=== PATIENT | female | born 1945 | race Caucasian/White ===

== ENCOUNTER → 2018-03-22 10:38 | Outpatient (CLI) | payer MEDICARE, SELFPAY ==
--- NOTE | 2018-03-22 | DI.MG.S_ITS ---
BILATERAL DIGITAL SCREENING MAMMOGRAM 3D/2D WITH CAD: 03/22/2018 CLINICAL: Routine screening. Comparison is made to exams dated: 03/23/2017 mammogram, 01/21/2016 mammogram, and 08/07/2011 mammogram - [facility]. The tissue of both breasts is predominantly fatty. Current study was also evaluated with a Computer Aided Detection (CAD) system. No significant masses, calcifications, or other findings are seen in either breast. There has been no significant interval change. IMPRESSION: NEGATIVE There is no mammographic evidence of malignancy. A 1 year screening mammogram is recommended. NOTE: For mammograms, a report in lay terms will be sent to the patient. Approximately 15% of breast malignancies will not be visualized mammographically. In the management of a palpable breast mass, a negative mammogram must not discourage biopsy of a clinically suspicious lesion. Electronically Signed By: Aga lloyd/thiago:03/23/2018 12:31:15 letter sent: Normal Exam ACR BI-RADS Category 1: Negative [id number]
== END ==
PROVIDERS: PCP Physician Assistant; Visit Provider Physician Assistant
DX: Z12.31 Encounter for screening mammogram for malignant neoplasm of breast (principal)
CPT/HCPCS: 77063; 77067

== ENCOUNTER → 2018-11-21 09:35 | Outpatient (CLI) | payer MEDICARE, SELFPAY ==
--- NOTE | 2018-11-21 | DI.MG.S_ITS ---
BILATERAL DIGITAL DIAGNOSTIC MAMMOGRAM 3D/2D: 11/21/2018 CLINICAL: Bilateral breast pain. Comparison is made to exams dated: 03/22/2018 mammogram - [facility] and 03/23/2017 mammogram - [facility]. There are scattered fibroglandular elements in both breasts. No significant masses, calcifications, or other findings are seen in either breast. IMPRESSION: NEGATIVE There is no abnormality seen in either breast to correspond with the pain, however, clinical followup is recommended. There is no mammographic evidence of malignancy. Return to annual mammogram screening schedule is recommended. Findings and recommendations were conveyed to the patient at time of exam. This exam was interpreted at Station ID: [id number]. NOTE: For mammograms, a report in lay terms will be sent to the patient. Approximately 15% of breast malignancies will not be visualized mammographically. In the management of a palpable breast mass, a negative mammogram must not discourage biopsy of a clinically suspicious lesion. Electronically Signed By: Elsa serna/:11/21/2018 10:42:22 letter sent: Normal Exam ACR BI-RADS Category 1: Negative [id number]
== END ==
PROVIDERS: PCP Physician Assistant; Visit Provider Physician Assistant
DX: N64.4 Mastodynia (principal)
CPT/HCPCS: 77066; G0279

== ENCOUNTER 2019-04-27 11:58 | Emergency (ER) | payer MEDICARE, SELFPAY ==
[2019-04-27 11:58] VITALS: BP 130/67; PULSE 80; RESP 18; TEMP 36; O2SAT 96
--- NOTE | 2019-04-27 12:27 | DI.RAD.S_ITS ---
PROCEDURE: XR CHEST 1V INDICATIONS: chest pain TECHNIQUE: One view of the chest was acquired. COMPARISON: None. FINDINGS: Surgical changes and devices: None. Lungs and pleura: Lungs are clear. No pleural effusions or pneumothorax. Mediastinum: Mediastinal contours appear normal. Heart size is normal. Bones and chest wall: No suspicious bony lesions. Overlying soft tissues appear unremarkable. IMPRESSION: No acute cardiopulmonary process is evident. Dictated by: Johnny Nur M.D. on 04/27/2019 at 11:49 Approved by: Johnny Nur M.D. on 04/27/2019 at 12:06
[2019-04-27 12:35] LABS: Add Manual Diff / Slide Review NO; Basophils Absolute Auto 0 /uL (0-100); Basophils Percent Auto 0.7 % (0-2); Eosinophils Absolute Auto 300 /uL (0-450); Hematocrit 39.9 % (36-46); Hemoglobin 13.4 g/dL (12.0-16.0); Lymphocytes Absolute Auto 1800 /uL (1100-4500); Lymphocytes Percent Auto 27.1 % (25-40); Mean Corpuscular HGB Conc 33.6 % (30-36); Mean Corpuscular Hemoglobin 30.9 PG (26-34); Monocytes Absolute Auto 500 /uL (0-900); Neutrophils Absolute Auto 4100 /uL (1500-7000); Neutrophils Percent Auto 60.2 % (50-75); Platelet Count 278 X10^3/uL (150-400); Red Blood Cell Count 4.34 X10^6/uL (4.0-5.2); Red Cell Distribution Width 13.5 % (11.6-14.8); White Blood Cell Count 6.7 X10^3/uL (4.5-11.0)
[2019-04-27 12:36] LABS: PTT Partial Thromboplastin Tim 35 SECONDS (26.4-36.2)
[2019-04-27 12:37] LABS: Alanine Aminotransferase 41 IU/L (<35); Albumin 4.4 g/dL (3.5-5.0); Albumin Globulin Ratio 1.7 (1.0-2.8); Alkaline Phosphatase 77 U/L (38-126); Aspartate Aminotransferase 40 IU/L (14-36); BUN Creatinine Ratio 26.7 (6-22); Bilirubin Total 0.6 mg/dL (0.2-1.3); Blood Urea Nitrogen 16 mg/dL (7-17); Carbon Dioxide 28 mmol/L (22-32); Chloride 104 mmol/L (98-107); Creatine Kinase 116 U/L (30-135); Estimated Glomerular Filt Rate > 60.0 mL/min (>60); Globulin 2.6 g/dL (1.7-4.1); Glucose 125 mg/dL (80-110); HEMOLYSIS < 15 (0-50); Lipase 92 U/L (23-300); Potassium 3.8 mmol/L (3.4-5.1); Sodium 140 mmol/L (137-145)
[2019-04-27 12:40] VITALS: BP 130/66; PULSE 74; O2SAT 95
[2019-04-27 12:52] LABS: CKMB % Relative Index 1.9 % (1.5-5.0); Creatine Kinase MB 2.24 ng/mL (<2.37)
[2019-04-27 13:20] VITALS: BP 130/67; PULSE 70; O2SAT 97
--- NOTE | 2019-04-27 14:20 | ED_ITS ---
HPI - Chest Pain General Chief Complaint: Chest Pain Stated Complaint: chest pain last night Time Seen by Provider: 04/27/19 12:47 Source: patient Mode of arrival: Ambulatory Limitations: no limitations History of Present Illness HPI narrative: Patient comes emergency department complaining of palpitations this around 0100. She states she was just lying in bed when she began to feel as though her heart was ?shaking?. She states there was no pain with the sensation, but that it just felt very strange. She denies any shortness of breath. No nausea or vomiting. Patient states that she is not known to have any cardiac issues. She states that after her mother of congestive heart failure about 3 years ago she had a full workup with a reception at her own request, including stress test, event monitor, an echocardiogram, and the all of these were negative. She denies any history of smoking. She takes lisinopril and hydrochlorothiazide for hypertension, and her hypertension has been well controlled on these. Patient denies any recent illnesses. She has not been taking any stimulants or decongestants. She states she has been under lot of stress because her is currently being treated for recurrent malignant melanoma. She also states she only slept about 4 or 5 hours last night. P atient states she has been feeling tired for some weeks and that she feels as though she could taking out of now. No dyspnea on exertion though. Related Data Home Medications Medication Instructions Recorded Confirmed hydrochlorothiazide 12.5 mg PO DAILY 04/27/19 04/27/19 lisinopril 20 mg PO BID 04/27/19 04/27/19 zolpidem 5 mg PO BEDTIME 04/27/19 Allergies Allergy/AdvReac Type Severity Reaction Status Date / Time No Known Drug Allergies Allergy Verified 04/27/19 13:10 Review of Systems Constitutional Constitutional: Denies chills, Denies fatigue, Denies fever(s), Denies frequent falls, Denies lethargy and Denies weakness Eyes Eyes: Denies change in vision, Denies eye discharge, Denies irritation and Denies loss of vision ENT Ears, Nose, Mouth, and Throat: Denies change in voice, Denies dizziness, Denies neck pain, Denies sore throat and Denies throat swelling Cardiovascular Cardiovascular: Denies chest pain, Denies irregular heart rhythm, Denies lightheadedness, Reports palpitations, Denies dyspnea, Denies dyspnea on exertion and Denies orthopnea Respiratory Respiratory: Denies cough, Denies dyspnea, Denies dyspnea on exertion and Denies wheezing Gastrointestinal Gastrointestinal: Denies abdominal pain, Denies change in bowel habits, Denies diarrhea, Denies nausea and Denies vomiting Genitourinary Genitourinary: Denies hematuria, Denies flank pain, Denies urinary incontinence and Denies urinary urgency Musculoskeletal Musculoskeletal: Denies back pain, Denies muscle weakness, Denies neck pain, Denies numbness and Denies tingling Integumentary/Breasts Skin/Breast: Denies pruritus, Denies erythema, Denies rash and Denies wounds Neurologic Neurologic: Denies behavioral changes, Denies confusion, Denies dizziness, Denies frequent falls, Denies loss of vision, Denies numbness, Denies tingling and Denies weakness Psychiatric Psychiatric: Denies anxiety, Denies behavioral changes, Denies confusion, Denies depression, Denies homicidal ideation and Denies suicidal ideation Endocrine Endocrine: Denies fatigue, Denies flushing and Reports palpitations Hematologic/Lymphatic Hematologic/Lymphatic: Denies easy bruising Allergic/Immunologic Allergic/Immunologic: Denies urticaria, Denies throat swelling and Denies wheezing Patient History Medical History HTN (hypertension) (Acute) Social History Smoking Status: Never smoker Smoking Status: Never smoker alcohol intake frequency: 0-2 drinks per day Substance Use Type: does not use Exam Initial Vital Signs Initial Vital Signs: Vital Signs Temperature 96.8 F L 04/27/19 11:58 Pulse Rate 80 04/27/19 11:58 Respiratory Rate 18 04/27/19 11:58 Blood Pressure 130/67 04/27/19 11:58 Pulse Oximetry 96 04/27/19 11:58 Const General: cooperative and well developed Nutritional Appearance: well nourished Orientation: alert, awake, oriented x3 and not confused [facility] Head: normocephalic and atraumatic Ears: external ears normal Nose: external nose normal and No nasal discharge Face and sinus: face symmetric and No dry mucous membranes Mouth: oral mucosae normal and moist mucous membranes Teeth and gingiva: dentition normal Eyes General: appearance normal, both eyes and all related structures Eyelids: eyelids normal Conjunctivae: conjunctivae normal Sclera: sclerae normal Pupils: PERRL EOM: EOM intact bilaterally Neck Neck: normal visual inspection, trachea midline, No lymphadenopathy, No midline deformity and No JVD Lymphatic: No lymphedema Chest Chest: normal inspection of the chest Resp Effort & Inspection: normal respiratory effort, able to speak in complete sentences, no respiratory distress and no use of accessory muscles Auscultation: clear to auscultation bilaterally, no rales, no rhonchi and no wheezes Cardio Rate: regular rate Rhythm: regular rhythm Heart Sounds: no click, no gallops, no murmurs and no rubs Pulses: normal peripheral pulses GI Inspection: non-distended Palpation: soft, no hepatosplenomegaly, No guarding, No pulsatile mass and No tender Auscultation: normal bowel sounds Back/Spine/Pelvis Back: No CVA tenderness Cervical Spine: cervical ROM normal and No pain with cervical ROM Thoracic/Lumbar Spine: thoracic and lumbar spine normal to inspection Skin General: no rashes or lesions noted, No jaundice and No petechiae Neuro General: alert, oriented x3, gait normal and no focal motor deficits Speech: speech normal Extrem General: full ROM, no clubbing, cyanosis or edema, no pedal edema and no calf tenderness Psych Appearance: well kempt Mental Status: mental status grossly normal Attitude: cooperative Thought Content: normal and suicidality Judgment: judgment good Course Course Course Narrative: Patient was worked up with labs, chest x-ray, and EKG, all of which were unremarkable. Patient's troponin was slightly elevated an indeterminate, but given that had been over 10 hours since the patient's symptoms, I did not feel this slight elevation was likely to be significant. T he patient was asymptomatic in the emergency department and I felt she was stable for discharge home. We've discussed the need for follow-up to discuss event monitoring, should she have repeated episodes like this. However, it is possible that the patient has experienced a 1 time phenomenon which will not repeat itself, in which case is up to the patient whether she would like to follow up regarding this or not. If the patient develops chest pain shortness of breath, or if she should have another episode associated with syncope or near-syncope, she has been advised that she should return to the emergency department immediately. Orders Ordered: ED Orders 04/27/19 12:07 EKG-12 Lead Stat 04/27/19 12:20 Complete Blood Count AUTO DIFF Stat Comprehensive Metabolic Panel Stat Lipase Stat Partial Thromboplastin Time Stat Prothrombin Time INR Stat Troponin & CK Cardiac Panel Stat 04/27/19 12:27 XR chest 1V Stat Vital Signs Vital signs: Vital Signs - 8 hr 04/27/19 12:40 04/27/19 13:20 04/27/19 14:37 Pulse Rate 74 70 68 Respiratory Rate 18 Blood Pressure 111/74 Blood Pressure [Left Arm] 130/66 130/67 Pulse Oximetry 95 97 98 MDM - Chest Pain Medical Records Data Attestation: I reviewed the patient's medical records. Lab Data Attestation: I reviewed the patient's lab results. Result diagrams: 04/27/19 12:20 04/27/19 12:20 Labs: Lab Results 04/27/19 04/27/19 04/27/19 Range/Units 12:20 12:20 12:20 WBC 6.7 (4.5-11.0) X10^3/uL RBC 4.34 (4.0-5.2) X10^6/uL Hgb 13.4 (12.0-16.0) g/dL Hct 39.9 (36-46) % MCV 92.0 (80-100) fL MCH 30.9 (26-34) PG MCHC 33.6 (30-36) % RDW 13.5 (11.6-14.8) % Plt Count 278 (150-400) X10^3/uL Neut % (Auto) 60.2 (50-75) % Lymph % (Auto) 27.1 (25-40) % [place] % (Auto) 8.0 (3-14) % Eos % (Auto) 4.0 (2-4) % Baso % (Auto) 0.7 (0-2) % Neut # (Auto) 4100 (7417-1794) /uL Lymph # (Auto) 1800 (2734-5635) /uL [place] # (Auto) 500 (0-900) /uL Eos # (Auto) 300 (0-450) /uL Baso # (Auto) 0 (0-100) /uL PT 12.0 (10.1-12.7) SECONDS INR 1.0 (0.9-1.3) APTT 35 (26.4-36.2) SECONDS Sodium 140 (137-145) mmol/L Potassium 3.8 (3.4-5.1) mmol/L Chloride 104 (98-107) mmol/L Carbon Dioxide 28 (22-32) mmol/L BUN 16 (7-17) mg/dL Creatinine 0.60 (0.52-1.04) mg/dL Estimated GFR > 60.0 (>60) mL/min BUN/Creatinine Ratio 26.7 H (6-22) Glucose 125 H (80-110) mg/dL Calcium 10.0 (8.4-10.2) mg/dL Total Bilirubin 0.6 (0.2-1.3) mg/dL AST 40 H (14-36) IU/L ALT 41 H (<35) IU/L Alkaline Phosphatase 77 (38-126) U/L Total Creatine Kinase 116 (30-135) U/L CK-MB (CK-2) 2.24 (<2.37) ng/mL CK-MB (CK-2) Rel Index 1.9 (1.5-5.0) % Troponin I 0.050 H (0.01-0.034) ng/mL Total Protein 7.0 (6.3-8.2) g/dL Albumin 4.4 (3.5-5.0) g/dL Globulin 2.6 (1.7-4.1) g/dL Albumin/Globulin Ratio 1.7 (1.0-2.8) Lipase 92 (23-300) U/L Imaging Data Chest x-ray: Radiologist's impression: PROCEDURE: XR CHEST 1V INDICATIONS: chest pain TECHNIQUE: One view of the chest was acquired. COMPARISON: None. FINDINGS: Surgical changes and devices: None. Lungs and pleura: Lungs are clear. No pleural effusions or pneumothorax. Mediastinum: Mediastinal contours appear normal. Heart size is normal. Bones and chest wall: No suspicious bony lesions. Overlying soft tissues appear unremarkable. IMPRESSION: No acute cardiopulmonary process is evident. Dictated by: Johnny Nur M.D. on 04/27/2019 at 11:49 Approved by: Johnny Nur M.D. on 04/27/2019 at 12:06 ECG Data Attestation: I personally reviewed and interpreted this ECG as follows: (See below) Interpretation: Twelve lead EKG performed April 27, 2019 at 12:07 p.m., as follows: Regular ventricular rhythm with a rate of 75 beats per minute NH intervals 110 millisecond QTC interval [address] T wave changes Interpretation: Sinus rhythm with short NH interval; no signs of acute ischemia; borderline EKG as interpreted by ED MD. Discharge Plan Departure Patient Disposition: Home Clinical Impression: Heart palpitations Discharge Date/Time: 04/27/19 14:37 Instructions: DI for Palpitations Activity Restrictions/Additional Instructions: Your EKG looks good today, and your labs do not show any evidence of a heart attack or other concerning finding. It is not clear what caused your palpitations, although you have been noted on the air sampling and monitoring today to have occasional extra beats. It is important that you follow-up with your primary care physician if you have any further symptoms like this, and discuss getting set up with an event monitor to further evaluate the feeling of palpitations t hat you're having. If you develop chest pain, shortness of breath or nausea in the setting of your palpitations, please return to the emergency department immediately. Prescriptions: No Action lisinopril 20 mg tablet 20 mg PO BID RF: 0 zolpidem 5 mg tablet 5 mg PO BEDTIME RF: 0 hydrochlorothiazide 12.5 mg tablet 12.5 mg PO DAILY RF: 0 Referrals: Adamarsi Figueroa PA-C [Primary Care Provider] -
[2019-04-27 14:37] VITALS: BP 111/74; PULSE 68; RESP 18; O2SAT 98
== END 2019-04-27 14:37 | disposition home or self-care (01) ==
PROVIDERS: Emergency Provider Emergency Medicine; PCP Physician Assistant
DX: R00.2 Palpitations (principal)
CPT/HCPCS: 36415; 71045; 80053; 82550; 82553; 83690; 84484; 85025; 85610; 85730; 93005; 93010; 99284; 99285

== ENCOUNTER 2019-04-29 16:10 | Emergency (ER) | payer MEDICARE, SELFPAY ==
[2019-04-29 16:24] VITALS: BP 147/74; PULSE 88; RESP 16; TEMP 36.4; O2SAT 97; BMI 33.5
--- NOTE | 2019-04-29 16:24 | DI.RAD.S_ITS ---
PROCEDURE: XR CHEST 1V INDICATIONS: chest pain TECHNIQUE: One view of the chest was acquired. COMPARISON: [facility], CR, XR CHEST 1V, 04/27/2019, 12:32. FINDINGS: Surgical changes and devices: Cholecystectomy clips are seen. Lungs and pleura: An incomplete inspiratory result is noted, causing a crowded appearance to the lung markings. No focal infiltrates are seen. No pneumothorax or significant pleural effusions are seen. Mediastinum: Mediastinal contours appear normal. Heart size is normal. Bones and chest wall: No suspicious bony lesions. Age-appropriate bony degenerative changes are seen. Overlying soft tissues appear unremarkable. IMPRESSION: Portable chest within normal limits. Dictated by: Sulaiman Hahn M.D. on 04/29/2019 at 16:00 Approved by: Sulaiman Hahn M.D. on 04/29/2019 at 16:01
[2019-04-29 16:47] VITALS: BP 138/65; PULSE 80; RESP 19; O2SAT 97
--- NOTE | 2019-04-29 16:59 | ED.RECABL ---
HPI - Recheck/Abnormal Lab/Rx General Chief Complaint: Recheck/Abnormal Lab/Rx Stated Complaint: wants labs done, concerned about her heart Time Seen by Provider: 04/29/19 16:23 Source: patient and old records reviewed Mode of arrival: Ambulatory Limitations: no limitations History of Present Illness HPI narrative: 73-year-old female comes to the emergency with request for repeat heart enzymes. Patient was seen here on the for palpitations. Patient states on the night of the she was lying in bed on her back when she felt like her heart was sort of juggling or shaking for about 15 minutes lying Jell-O she states it resolved. She did have any more symptoms since then. The only thing she stated is maybe she felt like there was a brush like a finger brushing across her chest but more on the inside a couple times. She has not any syncope, no shortness of breath. No nausea, no vomiting no diaphoresis. She denies any chest pain or pressure. She states she has a past medical history of hypertension she recently had her lisinopril increased from 20 mg daily to twice daily. She also had her metformin stopped about 2 or 3 weeks ago because her hemoglobin A1c has been improving and they felt she likely did not needed anymore. She has a history of laser eye surgery that was on the day of the when she had symptoms early in the day. 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 Cholecystectomy remote left leg fracture with repair, appendectomy and tonsillectomy. No tobacco, quit drinking alcohol 30 years ago and denies illicit. She was in contact with her primary care PA Henry who asked that she get repeat labs as she had an indeterminate troponin on the and we have no priors for comparison. She has set up follow-up with Cardiology on the 05 of May. Related Data Home Medications Medication Instructions Recorded Confirmed hydrochlorothiazide 12.5 mg PO DAILY 04/27/19 04/27/19 lisinopril 20 mg PO BID 04/27/19 04/27/19 zolpidem 5 mg PO BEDTIME 04/27/19 Allergies Allergy/AdvReac Type Severity Reaction Status Date / Time No Known Drug Allergies Allergy Verified 04/27/19 13:10 Review of Systems Review of Systems ROS Unobtainable: All systems reviewed & are unremarkable except as noted in HPI and below Patient History Medical History HTN (hypertension) (Acute) Social History Smoking Status: Never smoker Smoking Status: Never smoker alcohol intake frequency: 0-2 drinks per day Substance Use Type: does not use Exam Narrative Exam Narrative: GENERAL: Alert and oriented x three, obese, well-appearing female in no acute distress. HEENT: Head normocephalic, atraumatic, EOMI, pupils reactive, face symmetric, moist mucous membranes NECK: Supple, full range of motion CARDIOVASCULAR: Regular rate and rhythm without murmurs, rubs or gallops. RESPIRATORY: Breath sounds equal bilaterally, no wheezes rales or rhonchi. ABDOMEN: Soft, nontender. Normoactive bowel sounds all 4 quadrants. No guarding or rebound, rigidity, no mass : No CVA tenderness EXTREMITIES: Normal range of motion, no clubbing or edema. Neurovascularly intact NEUROLOGICAL: Cranial nerves II through XII grossly intact. Moving all extremities SKIN: Warm, dry, no petechiae, no rashes or lesions. Initial Vital Signs Initial Vital Signs: Vital Signs Temperature 97.5 F L 04/29/19 16:24 Pulse Rate 88 04/29/19 16:24 Respiratory Rate 16 04/29/19 16:24 Blood Pressure 147/74 H 04/29/19 16:24 Pulse Oximetry 97 04/29/19 16:24 Course Orders Ordered: ED Orders 04/29/19 16:24 XR chest 1V Stat EKG-12 Lead Stat 04/29/19 17:06 Complete Blood Count AUTO DIFF Stat Comprehensive Metabolic Panel Stat Lipase Stat Magnesium Stat Partial Thromboplastin Time Stat Prothrombin Time INR Stat Troponin & CK Cardiac Panel Stat Vital Signs Vital signs: Vital Signs - 8 hr 04/29/19 16:24 04/29/19 16:47 04/29/19 18:00 Temperature 97.5 F L Pulse Rate 88 80 71 Respiratory Rate 16 19 20 Blood Pressure 147/74 H Blood Pressure [Right Arm] 138/65 143/90 H Pulse Oximetry 97 97 96 MDM - Recheck/Abnormal Lab/Rx Lab Data Attestation: I reviewed the patient's lab results. Result diagrams: 04/29/19 17:06 04/29/19 17:06 Labs: Lab Results 04/29/19 04/29/19 04/29/19 Range/Units 17:06 17:06 17:06 WBC 6.8 (4.5-11.0) X10^3/uL RBC 4.35 (4.0-5.2) X10^6/uL Hgb 13.4 (12.0-16.0) g/dL Hct 39.8 (36-46) % MCV 91.5 (80-100) fL MCH 30.7 (26-34) PG MCHC 33.6 (30-36) % RDW 13.3 (11.6-14.8) % Plt Count 278 (150-400) X10^3/uL Neut % (Auto) 58.4 (50-75) % Lymph % (Auto) 30.8 (25-40) % [place] % (Auto) 5.2 (3-14) % Eos % (Auto) 4.6 H (2-4) % Baso % (Auto) 1.0 (0-2) % Neut # (Auto) 4000 (4594-7109) /uL Lymph # (Auto) 2100 (1721-1965) /uL [place] # (Auto) 400 (0-900) /uL Eos # (Auto) 300 (0-450) /uL Baso # (Auto) 100 (0-100) /uL PT 11.8 (10.1-12.7) SECONDS INR 1.0 (0.9-1.3) APTT 32 D (26.4-36.2) SECONDS Sodium 140 (137-145) mmol/L Potassium 4.2 (3.4-5.1) mmol/L Chloride 102 (98-107) mmol/L Carbon Dioxide 27 (22-32) mmol/L BUN 12 (7-17) mg/dL Creatinine 0.50 L (0.52-1.04) mg/dL Estimated GFR > 60.0 (>60) mL/min BUN/Creatinine Ratio 24.0 H (6-22) Glucose 110 (80-110) mg/dL Calcium 9.8 (8.4-10.2) mg/dL Magnesium 1.9 (1.6-2.3) mg/dL Total Bilirubin 0.7 (0.2-1.3) mg/dL AST 52 H (14-36) IU/L ALT 51 H (<35) IU/L Alkaline Phosphatase 71 (38-126) U/L Total Creatine Kinase 104 (30-135) U/L CK-MB (CK-2) 1.20 (<2.37) ng/mL CK-MB (CK-2) Rel Index 1.2 L (1.5-5.0) % Troponin I < 0.012 (0.01-0.034) ng/mL Total Protein 7.6 (6.3-8.2) g/dL Albumin 4.7 (3.5-5.0) g/dL Globulin 2.9 (1.7-4.1) g/dL Albumin/Globulin Ratio 1.6 (1.0-2.8) Lipase 112 (23-300) U/L Imaging Data Chest x-ray: Attestation: I personally reviewed and interpreted this imaging study as follows: Radiologist's impression: [address] [id number] XRay Report Signed Patient: Lainey Santana#: [id number] : 7Acct:[id number] Age/Sex: 73 / FDate of Service: 04/29/19 Loc: ED Accession Number: [id number] Procedure: XR chest 1V Ordering Provider: Pilar Mortensen D.O. PROCEDURE: XR CHEST 1V INDICATIONS: chest pain TECHNIQUE: One view of the chest was acquired. COMPARISON: [facility], , XR CHEST 1V, 04/27/2019, 12:32. FINDINGS: Surgical changes and devices: Cholecystectomy clips are seen. Lungs and pleura: An incomplete inspiratory result is noted, causing a crowded appearance to the lung markings. No focal infiltrates are seen. No pneumothorax or significant pleural effusions are seen. Mediastinum: Mediastinal contours appear normal. Heart size is normal. Bones and chest wall: No suspicious bony lesions. Age-appropriate bony degenerative changes are seen. Overlying soft tissues appear unremarkable. IMPRESSION: Portable chest within normal limits. Dictated by: Sulaiman Hahn M.D. on 04/29/2019 at 16:00 Approved by: Sulaiman Hahn M.D. on 04/29/2019 at 16:01 ECG Data Attestation: I personally reviewed and interpreted this ECG as follows: Prior ECG tracings: available for review Interpretation: Sinus rhythm rate of 74 NH, 156 QRS of 101 and QTC of 409. Patient has flipped T-wave in [address] changes noted in comparison to prior EKG from 04/27/2019. MDM Narrative Medical decision making narrative: Patient had an episode of palpitations on the she has not really had any additional symptoms since that time. Her primary care was hoping that she could have a repeat troponin she had indeterminate level she did not have a clear for indeterminate level such as elevated renal function so we elected to go ahead and repeat today. Patient's LFTs are slightly elevated consistent with most recent. Troponin is negative today with no new EKG changes. Patient has appointment with cardiology which is on the . She has not had any other symptoms that are concerning for ACS. Patient was sent with a copy of his labs. Discharge Plan Departure Patient Disposition: Home Clinical Impression: Heart palpitations Discharge Date/Time: 04/29/19 18:32 Activity Restrictions/Additional Instructions: Follow up at your appointment on May [address] Mehta. Your troponin is negative today. Continue your home medications as prescribed. Return to ER for fevers greater than 100.4F, new chest pain, shortness of breath, chest pain, persistent nausea, lightheadedness, passing out, recurrent symptoms or other new or concerning symptoms. Prescriptions: No Action lisinopril 20 mg tablet 20 mg PO BID RF: 0 zolpidem 5 mg tablet 5 mg PO BEDTIME RF: 0 hydrochlorothiazide 12.5 mg tablet 12.5 mg PO DAILY RF: 0 Referrals: Adamaris Figueroa PA-C [Primary Care Provider] - Dez Mehta MD [Non-Staff] -
[2019-04-29 17:14] LABS: Add Manual Diff / Slide Review NO; Basophils Absolute Auto 100 /uL (0-100); Eosinophils Absolute Auto 300 /uL (0-450); Eosinophils Percent Auto 4.6 % (2-4); Hematocrit 39.8 % (36-46); Hemoglobin 13.4 g/dL (12.0-16.0); Lymphocytes Absolute Auto 2100 /uL (1100-4500); Lymphocytes Percent Auto 30.8 % (25-40); Mean Corpuscular HGB Conc 33.6 % (30-36); Mean Corpuscular Hemoglobin 30.7 PG (26-34); Mean Corpuscular Volume 91.5 fL (80-100); Monocytes Absolute Auto 400 /uL (0-900); Monocytes Percent Auto 5.2 % (3-14); Neutrophils Absolute Auto 4000 /uL (1500-7000); Neutrophils Percent Auto 58.4 % (50-75); Platelet Count 278 X10^3/uL (150-400); Red Blood Cell Count 4.35 X10^6/uL (4.0-5.2); Red Cell Distribution Width 13.3 % (11.6-14.8); White Blood Cell Count 6.8 X10^3/uL (4.5-11.0)
[2019-04-29 17:23] LABS: Prothrombin Time 11.8 SECONDS (10.1-12.7)
[2019-04-29 17:26] LABS: PTT Partial Thromboplastin Tim 32 SECONDS (26.4-36.2)
[2019-04-29 17:27] LABS: Alanine Aminotransferase 51 IU/L (<35); Albumin 4.7 g/dL (3.5-5.0); Albumin Globulin Ratio 1.6 (1.0-2.8); Alkaline Phosphatase 71 U/L (38-126); Aspartate Aminotransferase 52 IU/L (14-36); Bilirubin Total 0.7 mg/dL (0.2-1.3); Blood Urea Nitrogen 12 mg/dL (7-17); Calcium 9.8 mg/dL (8.4-10.2); Carbon Dioxide 27 mmol/L (22-32); Chloride 102 mmol/L (98-107); Creatine Kinase 104 U/L (30-135); Estimated Glomerular Filt Rate > 60.0 mL/min (>60); Globulin 2.9 g/dL (1.7-4.1); Glucose 110 mg/dL (80-110); Lipase 112 U/L (23-300); Magnesium 1.9 mg/dL (1.6-2.3); Potassium 4.2 mmol/L (3.4-5.1); Sodium 140 mmol/L (137-145); Total Protein 7.6 g/dL (6.3-8.2)
[2019-04-29 17:39] LABS: Troponin I < 0.012 ng/mL (0.01-0.034)
[2019-04-29 17:43] LABS: CKMB % Relative Index 1.2 % (1.5-5.0); HEMOLYSIS 52 (0-50)
[2019-04-29 18:00] VITALS: BP 143/90; PULSE 71; RESP 20; O2SAT 96
== END 2019-04-29 18:32 | disposition home or self-care (01) ==
PROVIDERS: Emergency Provider Emergency Medicine; PCP Physician Assistant
DX: R00.2 Palpitations (principal)
CPT/HCPCS: 36415; 71045; 80053; 82550; 82553; 83690; 83735; 84484; 85025; 85610; 85730; 93005; 99284; 99285